=== PATIENT | female | born 1995 | race Two or more races ===

== ENCOUNTER 2019-05-13 07:01 | Emergency (ER) | payer MEDICAID ==
[~2019-05-13] VITALS: Ht 157.5 cm; Wt 65.8 kg
[2019-05-13 08:17] VITALS: BP 118/81
[2019-05-13] MEDS ORDERED: METHOCARBAMOL 500 MG TAB PO ONE (08:45)
[2019-05-13] MEDS ORDERED: KETOROLAC TROMETH 60MG/2ML VIAL IM ONE (08:45)
== END 2019-05-13 09:18 | disposition home or self-care (01) ==
LOC: ER 07:01
DX: G89.29 Other chronic pain (principal); M54.5 Low back pain; Z90.49 Acquired absence of other specified parts of digestive tract
CPT/HCPCS: 96372; 99283; J1885